=== PATIENT | female | born 1945 | race Caucasian/White ===

== ENCOUNTER 2021-06-27 06:52 | Day surgery (SDC) | payer OTHER ==
[~2021-06-27] VITALS: Ht 167.6 cm; Wt 97.5 kg
--- NOTE | ~2021-06-27 | O ---
[facility] [place] [address] OPERATIVE REPORT Name: MAGDIEL SMITH Room #: 150-6 [id number] Admission: 06/27/21 Attend Phys: Marcus Connolly MD Discharge: Date of : 49 Report #: [id number] THIS REPORT FOR: cc: Denice Sanchez MD,Denice Connolly,Marcus Simpson MD ~ cc: Denice Sanchez MD, Sajan Roman MD, Michael Cortes DATE OF SERVICE: 06/27/2021 PREOPERATIVE DIAGNOSES: 1. Basal cell carcinoma of right lower lid. 2. Right lower lid ectropion. POSTOPERATIVE DIAGNOSES: 1. Basal cell carcinoma of right lower lid. 2. Right lower lid ectropion. PROCEDURE: 1. Excision of basal cell carcinoma of right lower lid with frozen section control of margins and myocutaneous flap repair of defect. 2. Correction of right lower lid ectropion by myocutaneous flap. SURGEON: Marcus Connolly M.D. MIRROR DEPARTMENT SUPERVISOR: None. ANESTHESIA: MAC. COMPLICATIONS: None. INDICATIONS FOR SURGERY: This pleasant 76-year-old woman has a biopsy-proven basal cell carcinoma in her right lower lid, extending onto her cheek. 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 She presents for excision of her cancer from the right lower lid and cheek with frozen sections and repair of that defect along with an independent right lower lid ectropion repair via flap. Informed consent was obtained to include but not limited to the potential risk for loss of vision, bleeding, infection, failure to improve the problem, the potential need for further surgery or treatment. DESCRIPTION OF PROCEDURE: The patient was taken to the operating room where 2% Xylocaine with epinephrine mixed with equal parts 0.75% Marcaine with Wydase was administered transcutaneously and transconjunctivally to the right lower lid, the right lateral canthus, the right infratemporal fossa and the right cheek. The patient was subsequently prepped and draped in the usual sterile fashion. [address] [address] OPERATIVE REPORT Name: MAGDIEL SMITH Room #: 150-6 [facility]#: [id number] Admission: 06/27/21 Attend Phys: Marcus Connolly MD Discharge: Date of : 49 Report #: [id number] fine tip skin marking pen was then utilized to outline the lesion including approximately 2 mm of normal-appearing tissue around its margins. The incisions were then made with a 15C blade and the deeper dissection accomplished with a Ivory scissor. The specimen was then oriented on a drawing for the waiting pathologist. Hemostasis having been achieved, the pathologist analyzed that tissue. She felt that the margins were clear of any invasive cancer. A myocutaneous flap was then developed to correct that defect medially. The flap was then advanced and secured with multiple interrupted 6-0 plain gut sutures in a relaxed skin tension line. The right lateral canthus was then clamped with a Ambrocio clamp. Sharp canthotomy and cantholysis was then performed. Hemostasis was then re-achieved. A tarsal strip was then prepared laterally removing the lash-bearing portion of the redundant lid margin and the redundant tarsal plate. Additional dissection was then undertaken laterally and superiorly to allow the ectropion flap to be advanced in such a manner so as to direct the forces in the lower lid and cheek superotemporally, to draw the lid up rather than down, which would be defect from her prior cancer surgery is not only from what was done today, but what has been done previously in the lower part of her cheek. Hemostasis was then re-achieved. That flap was then advanced and secured with multiple interrupted 5-0 Prolene sutures that were suspended from periosteum. The subcutaneous structures and the skin were then closed with interrupted 6-0 plain gut sutures. The wounds were then cleaned and dressed with erythromycin ophthalmic ointment. The patient subsequently transported to the recovery area having tolerated the procedures well with no anesthetic or operative complications being noted. By: [id number] Marcus Connolly MD /avtar
[~2021-06-27 06:52] MED LIST: COZAAR100 MG PO; FISH OIL 1,0001 EAC9 PO; FLAXSEED1000 MG PO; HYDROCHLOROTHIA25 M1 PO; MELOXICAM7.5 MG PO; NORCO 5-325 TA1 EACH PO; NORVASC 2.5 MG2.5 M1 PO; PROTONIX40 M2 PO; PROZAC 20 MG20 MG PO; PROZAC20 M1 PO; VITAMIN E100 UNIT PO
[2021-06-27 08:28] VITALS: BP 144/93
--- NOTE | 2021-06-28 16:06 | PATH ---
[facility] [place] [address] PATHOLOGY RPT PROCEDURE Name: MAGDIEL SMITH Room #: DEP [facility].#: [id number] Admission: 06/27/21 Date of : 49 Discharge: 06/27/21 Report #: [id number] Path Case #: [id number] [facility] Accession Number: [id number] . 01 Material submitted: . lid - BASAL CELL CARCINOMA RIGHT LOWER LID-FS. Modifiers: right, lower . 01 Clinical history: . BASAL CELL CARCINOMA RLL EXCISION BASAL CELL CARCINOMA DS 06/27/EXCISION BASAL CELL CX . 02 Frozen section diagnosis: . FROZEN SECTION DIAGNOSIS: (by Dr. Margarita Ziegler) FSA1. Right lower lid, excision: - Margins free of invasive carcinoma on the FS slides examined. . Findings are discussed with Dr. Marcus Connolly in OR6 and a written report is placed in the patient's chart. (IUV:pit; 06/27/2021) . FROZEN SECTION GROSS DESCRIPTION: The specimen is received fresh from the OR labeled with the patient's name and "basal cell carcinoma FS right lower lid" consists of an oriented ellipse of skin measuring 1.6 x 0.5 x 0.3 cm. It is oriented as superior, radial, inferior, and lateral. The superior to medial to inferior margin is inked black. The inferior to lateral margin is inked blue and the lateral to superior margin is inked green. At this point the specimen is serially sectioned into four pieces and submitted entirely for frozen section as FSA1, this is subsequently submitted for permanent sections as A1. (IUV:pit; 06/27/2021) . Frozen section performed at [facility], [address], [place] [address]. IZV/QTP . 02 Diagnosis: Skin, right lower lid, excision: - BASAL CELL CARCINOMA. - MEDIAL MARGIN POSITIVE FOR SUPERFICIAL BASAL CELL CARCINOMA ON PERMANENT SECTIONS, SEE COMMENT. - Remainder of margins widely free of malignancy. (IUV:surface grinder; 06/28/2021) MBR 06/28/2021 1539 Local . 02 [facility] [address] [place] [address] PATHOLOGY RPT PROCEDURE Name: MAGDIEL SMITH Room #: DEP [facility] Maris#: [id number] Admission: 06/27/21 Date of : 49 Discharge: 06/27/21 Report #: [id number] Path Case #: [id number] Comment: Examination shows a superficial basal cell carcinoma at the medial margin on permanent sections. There is no evidence of malignancy at this margin in the frozen section slides. This discrepancy was discussed with Dr. Marcus Connolly at approximately 1 p.m. on 06/28/2021. (IUV:surface grinder; 06/28/2021) . 02 Electronically signed: . Margarita Ziegler MD, Pathologist NPI- [id number] . 01 Gross description: . SEE FROZEN SECTION FOR GROSS DESCRIPTION MFE/QTP 06/27/2021 1420 Local . 02 Pathologist provided ICD-10: C44.1122 . 02 CPT . 919188, [id number] Specimen Comment: A courtesy copy of this report has been sent to [phone], [phone] Specimen Comment: [phone] Specimen Comment: Report sent to / DR NIXON Performed at: [address], [place] [id number] MD Wilmar Prieto MD Phone: [phone] Performed at: [address] [id number] MD Margarita Ziegler MD Phone: [phone]
== END 2021-06-27 10:15 | disposition home or self-care (01) ==
LOC: OR 06:52 → TBA 06:54 → OR 09:41
PROVIDERS: ATTEND Ophthalmology
DX: C44.1122 Basal cell carcinoma of skin of right lower eyelid, including canthus (principal); H02.102 Unspecified ectropion of right lower eyelid; I10 Essential (primary) hypertension; K21.9 Gastro-esophageal reflux disease without esophagitis; Z98.890 Other specified postprocedural states; Z79.899 Other long term (current) drug therapy; Z87.891 Personal history of nicotine dependence; Z20.822 Contact with and (suspected) exposure to COVID-19
CPT/HCPCS: 50010; 50101; 50398; 51636; 56527; 56531; 62110; 62850; 70005